=== PATIENT | male | born 1970 | race Caucasian/White ===

== ENCOUNTER 2020-12-20 13:48 | Emergency (ER) | payer SELFPAY ==
--- NOTE | ~2020-12-20 | CT_ITS ---
EXAMINATION: CT ABDOMEN AND PELVIS WITH CONTRAST CLINICAL INFORMATION: RLQ pain COMPARISON: None. TECHNIQUE: Multidetector volumetric imaging was performed from the superior aspect of the liver through the pubic symphysis following administration of 85 mL Omnipaque 300 intravenous contrast. Sagittal and coronal reformatted images were obtained on the technologist workstation.. This CT examination was performed using dose optimization techniques as appropriate, variously including the following: *Automated exposure control *Adjustment of mA and/or kV according to patient size (this includes techniques or standardized protocols for targeted exams where dose is matched to indication/reason for exam; i.e. extremities or head) *Use of iterative reconstruction technique DLP: 698 mGy-cm FINDINGS: LUNG BASES: Minimal dependent atelectasis LIVER, GALLBLADDER, AND BILIARY TREE: Mild diffuse fatty infiltration of the liver but no focal hepatic lesion nor biliary ductal dilatation The gallbladder is contracted but otherwise unremarkable with no evidence of radiopaque gallstones, gallbladder wall thickening, or obvious pericholecystic inflammatory changes. PANCREAS: Unremarkable. SPLEEN: Unremarkable. ADRENAL GLANDS: Unremarkable. KIDNEYS AND URETERS: Mild right-sided hydronephrosis and hydroureter extending up to a 5 mm calcification in the proximal ureter just distal to the expected ureteral pelvic junction. There is mild fullness to the ureter distal to this but no distal ureteric calculi seen. Contralateral left kidney is unremarkable BLADDER: Decompressed GASTROINTESTINAL TRACT: Decompressed colon with a few scattered colonic diverticula but no evidence for diverticulitis. Visualized small bowel unremarkable ABDOMINAL WALL: No significant hernia is appreciated. LYMPHOVASCULAR STRUCTURES: Vascular calcification within the aorta iliac system PELVIC VISCERA: Unremarkable. OSSEOUS STRUCTURES: Unremarkable. CT/CT abdomen pelvis w con IMPRESSION: Mild hydronephrosis and hydroureter standing up to 5 mm calcification in the proximal right ureter just distal to the right ureteropelvic junction. There is mild fullness to the ureter throughout its course but no other distal ureteric calculi are appreciated otherwise.
[2020-12-20 13:57] VITALS: BP 168/98; BP 184/108; PULSE 77; PULSE 80; RESP 16; TEMP 37.2; O2SAT 98; BMI 31.3
[2020-12-20 14:20] VITALS: BP 174/104; PULSE 77; RESP 18; TEMP 36.9; O2SAT 97
--- NOTE | 2020-12-20 14:36 | ED_ITS ---
HPI - Abdominal Pain General Chief Complaint: Abdominal Pain Stated Complaint: abd pain Time Seen by Provider: 12/20/20 13:54 Source: patient Mode of arrival: ambulatory Limitations: no limitations History of Present Illness HPI narrative: 50-year-old male who never sees a doctor presents with 1 week of right lower quadrant pain and right flank pain. The pain has been intermittent and is a sharp stabbing pain, and has been worse since yesterday. He vomited once yesterday and today due to the pain. No trauma, no fevers, no diarrhea. No dysuria, no hematuria. was a heavy drinker and quit recently, last weekend he drank more than 15 drinks in 1 evening and his abdominal pain started after that. MD elicited complaint: abdominal pain and flank pain Pertinent past history: none Onset (ago): week(s) (1) Pain Consistency: intermittent Location: RLQ and R flank Severity: severe Pain scale (0-10): 10 Quality: stabbing Migration to: no migration Exacerbating factors: other (Lying flat) Relieving factors: nothing Associated symptoms: nausea and vomiting Related Data Previous Rx's Medication Instructions Recorded ketorolac 10 mg tablet 10 mg PO Q6H 5 Days #20 tab 12/20/20 oxycodone 5 mg capsule 5 mg PO BID PRN 3 Days #6 cap 12/20/20 prednisone 20 mg tablet 40 mg PO DAILY 7 Days #14 tab 12/20/20 tamsulosin 0.4 mg capsule (Flomax) 0.4 mg PO DAILY 14 Days #14 cap 12/20/20 Allergies Allergy/AdvReac Type Severity Reaction Status Date / Time No Known Allergies Allergy Verified 12/20/20 13:59 Review of Systems Constitutional: Denies body ache(s), Denies chills, Denies fatigue, Denies fever(s), Denies headache(s), Denies malaise and Denies weakness Eyes: Denies diplopia Denies otalgia, Denies headache(s), Denies post nasal drip, Denies sinus pain and Denies sore throat Cardiovascular: Denies chest pain, Denies syncope, Denies leg edema, Denies palpitations and Denies dyspnea Respiratory: Denies chest congestion, Denies cough and Denies dyspnea Gastrointestinal: Reports abdominal pain, Denies hematochezia, Denies constipation, Denies diarrhea, Reports nausea and Reports vomiting Genitourinary: Denies hematuria, Denies genital lesions, Denies genital pain, Denies dysuria, Reports flank pain, Denies penile discharge, Denies scrotal swelling, Denies testicular mass, Denies testicular pain, Denies urinary hesitancy, Denies urinary incontinence and Denies urinary urgency Skin/Breast: Denies erythema and Denies rash Denies confusion, Denies syncope, Denies headache(s) and Denies weakness Psychiatric: Denies anxiety, Denies confusion and Denies depression Endocrine: Denies fatigue and Denies palpitations Physical Exam Vital Signs: Vital Signs: Last Vital Signs Temp 98.4 F 12/20/20 14:20 Pulse 77 12/20/20 14:20 Resp 18 12/20/20 14:20 BP 174/104 H 12/20/20 14:20 Pulse Ox 97 12/20/20 14:20 Body Mass Index 31.3 Const: General: No confusion Nutritional Appearance: well nourished Orientation/consciousness: No confusion Limitations: no limitations HENMT: Head: Yes normal to inspection, Yes normocephalic and Yes atraumatic Ears: hearing grossly normal bilaterally, external ears normal, TM's normal bilaterally and EAC's normal General nose exam: Normal external nose present Face and sinus: Yes normal facial exam and Yes sinuses nontender Mouth: Normal oral and palatal mucosa present Throat: Yes posterior oropharynx normal Eyes: Conjunctivae: conjunctivae normal Pupils: Equal, round and reactive pupils present EOM: EOMs intact bilaterally Neck: Neck: Yes full ROM, Yes no lymphadenopathy and Yes supple Resp: Effort & Inspection: normal respiratory effort and able to speak in complete sentences Auscultation: clear to auscultation bilaterally, no crackles, no rales, no rhonchi and no wheezes Cardio: Rate: regular rate Rhythm: regular rhythm Heart sounds: S1 normal heart sound present and S2 normal heart sound present GI: Inspection: Yes normal to inspection Palpation (GI): Soft to palpation, Tenderness to palpation present (GI) in the RLQ, Guarding due to palpation present (GI) in the RLQ and not rigid Percussion: Yes normal to percussion Auscultation: normal bowel sounds : General: Yes bladder normal to palpation and Yes CVA tenderness on the right Penis: normal penis, circumcised, no ecchymosis, not edematous, not erythematous, no masses, no nodules, no papules and no pustules Meatus: meatus normal and No Blood at meatus present Scrotum: scrotum normal and not erythematous Testes: Testes normal, testicular lie normal, epididymides normal, no epidiymal masses, no epidiymal tenderness, no testicular mass, no testicular swelling and no testicular tenderness Back/Spine/Pelvis: Back: CVA tenderness Skin: General skin exam: no rashes or lesions noted Neuro: General: No confusion Cranial nerves: Yes Equal, round and reactive pupils present Extrem: General: Yes normal to inspection and Yes full ROM Psych: Appearance: grossly normal Affect: normal affect Attitude: cooperative Thought process: Normal thought process present Course Course Course Narrative: 50-year-old male with 1 week of intermittent and worsening right flank pain wrapping around to right lower quadrant. Patient never sees a doctor. On exam, patient is tender and guarding in right lower quadrant has right CVA tenderness. Male genital exam is normal. Patient is afebrile with stable vitals. Labs show white blood cell count 13.5, elevated liver function, AST 39, ALT 50, direct bili 0.6 total bili 1.7 normal alk-phos normal lipase. CT shows: Mild hydronephrosis and hydroureter standing up to 5 mm calcification in the proximal right ureter just distal to the right ureteropelvic junction. There is mild fullness to the ureter throughout its course but no other distal ureteric calculi are appreciated otherwise. Counseled patient to call urologist on Monday, gave patient phone number referred patient to urologist. Prescribed prednisone, ketorolac, oxycodone, Flomax. Consult to push fluids. Counseled to return for worsening pain, fevers, nausea or vomiting. Discussed with patient at length that he has had renal colic for a week and the stone is high in the ureter and 5 mm. We are hopeful this stone will pass on its own, but discussed with patient that he should have a low threshold to come back for worsening pain, explained to patient that if this stone does not move it will obstruct and cause kidney damage. Patient verbalized and no instrument and understanding. MDM - Abdominal Pain Lab Data Result diagrams: 12/20/20 14:52 12/20/20 14:52 Labs: Lab Results 12/20/20 12/20/20 12/20/20 Range/Units 14:52 14:52 17:09 WBC 13.5 H (4.8-10.8) X10*3/uL RBC 4.64 (4.60-5.80) X10*6/uL Hgb 15.3 (14.0-18.0) g/dl Hct 43.6 (42-52) % MCV 94.0 (80-98) fL MCH 33.0 (27.0-33.0) pg MCHC 35.1 (31.0-36.0) g/dl RDW 12.6 (11.0-16.0) % Plt Count 280 (160-400) X10*3/uL MPV 9.2 L (9.4-12.4) fL Immature Gran % (Auto) 0.4 (0.0-0.4) % Neut % (Auto) 86.8 H (45-73) % Lymph % (Auto) 7.1 L (20-40) % [place] % (Auto) 5.0 (2-11) % Eos % (Auto) 0.4 (0-4) % Baso % (Auto) 0.3 (0-2) % Lymph # (Auto) 1.0 L (1.2-4.9) X10*3/uL [place] # (Auto) 0.7 (0.1-1.2) X10*3/uL Eos # (Auto) 0.1 (0.0-0.4) X10*3/uL Baso # (Auto) 0.0 (0.0-0.2) X10*3/uL Abs Immat Gran (auto) 0.06 H (0.00-0.03) X10*3/uL Absolute Neuts (auto) 11.7 H (2.0-8.3) X10*3/uL Absolute Nucleated RBC 0.000 (0.0-0.012) X10*3/uL Nucleated RBC % (auto) 0.0 (0.0-0.2) /100WBC Sodium 141 (135-145) mmol/L Potassium 4.5 (3.3-5.1) mmol/L Chloride 105 (96-108) mmol/L Carbon Dioxide 28 (22-29) mmol/L Anion Gap 13 (12-20) BUN 11 (9-16) mg/dL Creatinine 1.03 (0.5-1.4) mg/dL Estim Creat Clear Calc 92.1 Estimated GFR > 60 Random Glucose 157 H (60-115) mg/dL Calcium 9.3 (8.4-10.2) mg/dL Total Bilirubin 1.7 H (0.0-1.0) mg/dL Direct Bilirubin 0.6 H (0.0-0.5) mg/dL AST 39 H (5-37) U/L ALT 50 H (0-40) U/L Alkaline Phosphatase 79 (39-117) U/L Total Protein 6.7 (6.5-8.0) g/dL Albumin 3.9 (3.5-5.0) g/dL Lipase 20 (8-78) U/L Urine Color YELLOW Urine Appearance CLEAR Urine pH 6.0 (5.0-8.0) Ur Specific [place] 1.010 (1.005-1.025) Urine Protein NEG (NEG-TRACE) MG/DL Urine Glucose (UA) NEG (NEG) MG/DL Urine Ketones NEG (NEG) MG/DL Urine Blood NEG (NEG) Urine Nitrite NEG (NEG) Ur Leukocyte Esterase NEG (NEG) Discharge Plan Discharge Clinical Impression: Kidney stone on right side Hydronephrosis Qualifiers: Hydronephrosis type: unspecified Qualified Code(s): N13.30 - Unspecified hydronephrosis Patient Disposition: Home, Self-Care Instructions: Kidney Stones (ED) Additional Instructions: supermarket manager your prescriptions at [facility] on [address] in [place]. On Monday please call the urologist at this phone number for follow-up appointment. [phone] Please take medicine as prescribed, please push fluids I would like you to drink 2-3 L of water a day, please return to the emergency room if you have worsening pain. As we discussed, I am concerned that your stone may not pass on its own and you may need an intervention. Pain will be your guide in this. Do not tough it out at home, if the pain returns and is severe, if you have fevers, if you have nausea and vomiting, please return to the emergency room. Prescriptions: New prednisone 20 mg tablet 40 mg PO DAILY 7 Days Qty: 14 RF: 0 ketorolac 10 mg tablet 10 mg PO Q6H 5 Days Qty: 20 RF: 0 oxycodone 5 mg capsule 5 mg PO BID PRN (Reason: pain) 3 Days Qty: 6 RF: 0 tamsulosin [Flomax] 0.4 mg capsule 0.4 mg PO DAILY 14 Days Qty: 14 RF: 0 Referrals: Romeo Bustillo III, MD [Physician] - 2 days (5 mm stone in right ureter just distal to UPJ with mild hydronephrosis and hydro ureteral stranding) [facility] Past Medical History Medical History (Updated 12/20/20 @ 17:58 by CHANDAN Rivera) No known health problems Social History Social History Advance Directives: No Advance Directives Information Provided: No
[2020-12-20 14:55] LABS: MANUAL DIFF FLAG NO
[2020-12-20 14:57] LABS: Basophils Percent Auto 0.3 % (0-2); Eosinophils Absolute Auto 0.1 X10*3/uL (0.0-0.4); Eosinophils Percent Auto 0.4 % (0-4); Hematocrit 43.6 % (42-52); Hemoglobin 15.3 g/dl (14.0-18.0); Imm Gran Abs Auto 0.06 X10*3/uL (0.00-0.03); Imm Gran Pct Auto 0.4 % (0.0-0.4); Lymphocytes Percent Auto 7.1 % (20-40); Mean Corpuscular HGB Conc 35.1 g/dl (31.0-36.0); Mean Platelet Volume 9.2 fL (9.4-12.4); Monocytes Absolute Auto 0.7 X10*3/uL (0.1-1.2); Neutrophils Absolute Auto 11.7 X10*3/uL (2.0-8.3); Neutrophils Percent Auto 86.8 % (45-73); Platelet Count 280 X10*3/uL (160-400); Red Blood Count 4.64 X10*6/uL (4.60-5.80); Red Cell Distribution Width 12.6 % (11.0-16.0); White Blood Count 13.5 X10*3/uL (4.8-10.8)
[2020-12-20] MEDS: Morphine Sulfate 4 MG/ML CARTRIDGE IVPUSH (14:58)
[2020-12-20] MEDS: ondansetron HCL 4 MG/2 ML VIAL IVPUSH (14:58)
[2020-12-20] MEDS: 0.9 % Sodium Chloride 1,000 ML 999 ML IV (14:58)
[2020-12-20 15:15] LABS: Alanine Aminotransferase 50 U/L (0-40); Albumin Level 3.9 g/dL (3.5-5.0); Alkaline Phosphatase 79 U/L (39-117); Anion Gap 13 (12-20); Aspartate Amino Transferase 39 U/L (5-37); Bilirubin Direct 0.6 mg/dL (0.0-0.5); Bilirubin Total 1.7 mg/dL (0.0-1.0); Blood Urea Nitrogen 11 mg/dL (9-16); Calcium 9.3 mg/dL (8.4-10.2); Carbon Dioxide 28 mmol/L (22-29); Chloride 105 mmol/L (96-108); Creatinine Clr Calc Pharmacy 92.1; Estimated Glomerular Filt Rate > 60; Glucose Random 157 mg/dL (60-115); Lipase 20 U/L (8-78); Potassium 4.5 mmol/L (3.3-5.1); Sodium 141 mmol/L (135-145); Total Protein 6.7 g/dL (6.5-8.0)
[2020-12-20] MEDS: iohexoL 350 MG/ML 100 ML INFUS..BTL IV (16:15)
[2020-12-20] MEDS: Ketorolac Tromethamine 15 MG/ML VIAL 30 MG IVPUSH (17:06)
[2020-12-20 17:18] LABS: Glucose Urine UA NEG (NEG); Leukocyte Esterase Urine NEG (NEG); Nitrite Urine NEG (NEG); Urine Blood NEG (NEG); Urine Ketones NEG (NEG); Urine Protein NEG (NEG-TRACE)
[2020-12-20 17:22] LABS: Appearance Urine CLEAR; Color Urine YELLOW
== END 2020-12-20 18:30 | disposition home or self-care (01) ==
PROVIDERS: Physician Assistant; Emergency Provider Emergency Medicine Emergency Medical Services
DX: N20.0 Calculus of kidney (principal); N13.30 Unspecified hydronephrosis; R10.31 Right lower quadrant pain; Z79.899 Other long term (current) drug therapy
CPT/HCPCS: 36415; 74177; 80048; 80076; 81003; 83690; 85025; 96365; 96375; 99284; J1885; J2270; J2405; Q9967